=== PATIENT | female | born 1980 | race Caucasian/White ===

== ENCOUNTER 2017-02-10 08:25 | Emergency (ER) | payer OTHER ==
[~2017-02-10] VITALS: Ht 172.7 cm; Wt 92.5 kg
--- NOTE | 2017-02-10 08:57 | EKG ---
[facility] [address] [place] [address] Test Date: 2017-02-10 Test Time: 08:35:43 Pat Name: AVERY SCOTT Department: Room: Gender: Female City Magistrate: : 1980 Requested By: MELLISA FINNEGAN Order Number: [id number] Reading MD: Fadi Mattson Measurements Intervals [place] Rate: 60 P: 28 MT: 136 QRS: 33 QRSD: 86 T: 26 QT: 424 QTc: 424 Interpretive Statements SINUS ARRHYTHMIA Electronically Signed On 02-13-2017 9:36:03 CDT by Fadi Mattson
--- NOTE | 2017-02-10 09:14 | RAD ---
Indication chest pain. A single view of the chest was obtained. No prior imaging of the chest is available. The heart and pulmonary vessels appear normal. The lungs are clear. There is no pleural fluid or pneumothorax. Bony structures appear grossly intact. IMPRESSION: No acute or focal process seen in the chest
[2017-02-10 09:30] LABS: BASO # 0.1 x10^3/uL (0.0-0.2); BASO % 1 % (0-3); EOS % 2 % (0-3); HEMATOCRIT 37.1 % (36.0-47.0); HEMOGLOBIN 12.8 g/dL (12.0-15.5); LYMPH % 33 % (24-48); MEAN CORPUSCULAR HEMOGLOBIN 31 pg (25-35); MEAN CORPUSCULAR HGB CONC 35 g/dL (31-37); MEAN CORPUSCULAR VOLUME 89 fL (79-100); MONO % 8 % (0-9); NEUT % 57 % (31-73); PLATELET COUNT 222 x10^3/uL (140-400); RED BLOOD COUNT 4.17 x10^6/uL (3.50-5.40); WHITE BLOOD COUNT 6.2 x10^3/uL (4.0-11.0)
--- NOTE | 2017-02-10 09:32 | PHYS DOC ---
Past Medical History Past Medical History: Kidney Stone Past Surgical History: Cholecystectomy, Additional Past Surgical Histo: R ANKLE SX X 2 Alcohol Use: Occasionally Drug Use: None Adult General Chief Complaint Chief Complaint: CHEST PAIN HPI HPI 36-year-old female presenting to the emergency department with a ripping tearing chest pain this started suddenly yesterday. She reports being diaphoretic and lightheaded at the time. Her pain then went away. It then returned last night and woke her from sleep and then came back today. Now it is migrated to her left clavicle and is dull heavy sensation approximate 4 out of 10. It radiates up into the neck. She reports her father and her grandfather had abdominal aortic aneurysms. Otherwise she denies any family history of vasculopathy such as Val Danlos syndrome. She has a history of high cholesterol but denies diabetes or high blood pressure. She denies unilateral leg swelling hemoptysis family or personal history of blood clotting disorders. She denies recent immobilization or surgery. Review of systems is negative for nausea vomiting. Positive for diaphoresis and lightheadedness. She denies abdominal pain. All other review of systems is negative unless otherwise noted in history of present illness. Review of Systems Review of Systems SEE ABOVE. Current Medications Current Medications Current Medications Medications (Trade) Dose Ordered Sig/Katiana Start Time Stop Time Status Last Admin Dose Admin Iohexol (Omnipaque 350 Mg/ml) 90 ml 1X ONCE 02/10/17 10:45 02/10/17 10:46 DC Allergies Allergies Allergies Coded Allergies Type Severity Reaction Last Updated Verified erythromycin base Allergy Intermediate Rash 02/10/17 Yes Physical Exam Physical Exam Constitutional: Well developed, well nourished, no acute distress, non-toxic appearance. HENT: Normocephalic, atraumatic, bilateral external ears normal, oropharynx moist, no oral exudates, nose normal. [] Eyes: PERRLA, EOMI, conjunctiva normal, no discharge. Neck: Normal range of motion, no tenderness, supple, no stridor. [] Cardiovascular:Heart rate regular rhythm, no murmur Lungs & Thorax: Bilateral breath sounds clear to auscultation [] Abdomen: Bowel sounds normal, soft, no tenderness, no masses, no pulsatile masses. Skin: Warm, dry, no erythema, no rash. [] Back: No tenderness, no CVA tenderness. Extremities: No tenderness, no cyanosis, no clubbing, ROM intact, no edema. Palpable pulse in both upper extremities present. Neurologic: Alert and oriented X 3, normal motor function, normal sensory function, no focal deficits noted. [] Psychologic: Affect normal, judgement normal, mood normal. [] Current Patient Data Vital Signs Vital Signs Date Time Temp Pulse Resp B/P (MAP) Pulse Ox O2 Delivery O2 Flow Rate FiO2 02/10/17 09:00 97.9 70 18 147/66 (93) 100 Room Air 97.9 Lab Values Laboratory Tests Test 02/10/17 09:23 White Blood Count 6.2 x10^3/uL (4.0-11.0) Red Blood Count 4.17 x10^6/uL (3.50-5.40) Hemoglobin 12.8 g/dL (12.0-15.5) Hematocrit 37.1 % (36.0-47.0) Mean Corpuscular Volume 89 fL (79-100) Mean Corpuscular Hemoglobin 31 pg (25-35) Mean Corpuscular Hemoglobin Concent 35 g/dL (31-37) Red Cell Distribution Width 15.0 % (11.5-14.5) H Platelet Count 222 x10^3/uL (140-400) Neutrophils (%) (Auto) 57 % (31-73) Lymphocytes (%) (Auto) 33 % (24-48) Monocytes (%) (Auto) 8 % (0-9) Eosinophils (%) (Auto) 2 % (0-3) Basophils (%) (Auto) 1 % (0-3) Neutrophils # (Auto) 3.5 x10^3uL (1.8-7.7) Lymphocytes # (Auto) 2.0 x10^3/uL (1.0-4.8) Monocytes # (Auto) 0.5 x10^3/uL (0.0-1.1) Eosinophils # (Auto) 0.1 x10^3/uL (0.0-0.7) Basophils # (Auto) 0.1 x10^3/uL (0.0-0.2) Sodium Level 140 mmol/L (136-145) Potassium Level 4.0 mmol/L (3.5-5.1) Chloride Level 104 mmol/L (98-107) Carbon Dioxide Level 28 mmol/L (21-32) Anion Gap 8 (6-14) Blood Urea Nitrogen 11 mg/dL (7-20) Creatinine 0.8 mg/dL (0.6-1.0) Estimated GFR (Cockcroft-Gault) 80.3 Glucose Level 94 mg/dL (70-99) Calcium Level 9.5 mg/dL (8.5-10.1) Total Bilirubin 0.6 mg/dL (0.2-1.0) Direct Bilirubin 0.2 mg/dL (0.0-0.2) Aspartate Amino Transferase (AST) 19 U/L (15-37) Alanine Aminotransferase (ALT) 25 U/L (14-59) Alkaline Phosphatase 56 U/L (46-116) Troponin I Quantitative < 0.017 ng/mL (0.000-0.055) Total Protein 7.4 g/dL (6.4-8.2) Albumin 3.9 g/dL (3.4-5.0) Lipase 143 U/L (73-393) Laboratory Tests 02/10/17 09:23 Laboratory Tests 02/10/17 09:23 EKG EKG EKG shows sinus rhythm with a regular rate. Neeses is normal. Intervals are normal. ST segments are congruent. Not suggestive of ischemia. Reviewed by myself [] Radiology/Procedures Radiology/Procedures [] Course & Med Decision Making Course & Med Decision Making Pertinent Labs and Imaging studies reviewed. (See chart for details) [] 28-year-old female presenting to the emergency department with chest pain. Triage vital signs afebrile with normal heart rate. Mild hypertension present. EKG unremarkable. Chest x-ray obtained. Blood pressures obtained in both extremities []. Blood work sent. CT angiography of the aorta shows no evidence of aortic dissection. On reexamination the patient's pain improved. The patient was then discharged home in stable condition to follow up with their primary care physician over the next 2-3 days. They were to return if their symptoms worsened or if they were concerned for any reason. [id number] discharge instructions and return precautions were given. Patient's questions were answered to their satisfaction. Patient is comfortable plan. PERC neg. Heart Score 1. Dragon Disclaimer Dragon Disclaimer This electronic medical record was generated, in whole or in part, using a voice recognition dictation system. Departure Departure Impression: Primary Impression: Chest pain Disposition: HOME, SELF-CARE Condition: STABLE Referrals: ABRAM MAYORGA MD Patient Instructions: Chest Pain (Nonspecific) Additional Instructions: Thank you for allowing us to participate in your care today. Followup with your primary care physician in 3 days if your symptoms do not improve. If you do not have a primary care provider you can ask for a list of our primary care providers. Return to the emergency department you have any new or concerning findings. This should be evaluated by the primary care physician and any necessary consulting services for continued management within a few days after discharge. Return to emergency room if you have any new or concerning symptoms including but not limited to fever, chills, nausea, vomiting, intractable pain, any new rashes, chest pain, shortness of air, uncontrolled bleeding, difficulty breathing, and/or vision loss. Problem Qualifiers Primary Impression: Chest pain Chest pain type: unspecified Qualified Codes: R07.9 - Chest pain, unspecified MELLISA FINNEGAN MD February 10, 2017 09:32
[2017-02-10 09:44] LABS: CALCIUM 9.5 mg/dL (8.5-10.1); CREATININE 0.8 mg/dL (0.6-1.0); GFR 80.3
[2017-02-10 09:50] LABS: ALBUMIN 3.9 g/dL (3.4-5.0); DIRECT BILIRUBIN 0.2 mg/dL (0.0-0.2); TOTAL BILIRUBIN 0.6 mg/dL (0.2-1.0); TOTAL PROTEIN 7.4 g/dL (6.4-8.2)
[2017-02-10] MEDS ORDERED: IOHEXOL 350 MG/ML 100 ML VIAL. IV ONE (10:45)
--- NOTE | 2017-02-10 11:39 | RAD ---
Exam performed: CT angiogram chest, abdomen and pelvis with contrast. History: Chest pain, suspected dissection. Date of service: 02/10/17. Comparison: None available Technique: Contiguous helical acquisitions are obtained through the chest, abdomen and pelvis during intravenous administration of 90 cc of Omnipaque 350. Sagittal and coronal MIP images are obtained and reviewed. Images were sent to 3-D workstation and 3-D rotating MIP images were obtained and reviewed. Findings: Study somewhat limited due to cardiac motion blurred. The before meals sending, arch and descending thoracic aorta appears normal in course and caliber. The abdominal aorta is normal in caliber. Normal origin of the neck vessels is seen. The celiac axis, superior mesenteric and inferior mesenteric arteries appear normal. Bilateral single renal arteries. Normal aortic bifurcation into internal and external iliac arteries is seen. Structures at the thoracic inlet including both lobes of the thyroid gland are normal. No dominant neck, axillary, mediastinal or hilar adenopathy is seen. Central airways patent without endoluminal lesions. The lungs are well expanded and clear. No focal infiltrates, effusion or pneumothorax is seen. Bones are normal. The study is performed for evaluation of abdominal viscera, however the liver, spleen and pancreas appear normal. The gallbladder is surgically absent. Both adrenal glands and bilateral kidneys are normal in size with symmetric excretion of contrast from both kidneys. There is no hydronephrosis or nephrolithiasis. No periaortic lymphadenopathy or fluid collection is seen. Small and large bowel loops are nondilated and unremarkable. Appendix is normal. The uterus is anteverted. Urinary bladder is well distended. No adnexal masses seen. No free or focal fluid collections or pelvic lymphadenopathy seen. Interrogation of bone windows is essentially unremarkable. Impression: 1. Essentially unremarkable CT angiogram aorta. No evidence of aneurysm or dissection seen. 2. No acute abnormality seen in the CT chest, abdomen and pelvis. PQRS Compliance Statement: One or more of the following individualized dose reduction techniques were utilized for this examination: 1. Automated exposure control 2. Adjustment of the mA and/or kV according to patient size 3. Use of iterative reconstruction technique
[2017-02-10 12:00] VITALS: BP 108/74
== END 2017-02-10 12:15 | disposition home or self-care (01) ==
LOC: ER 09:56
DX: R07.9 Chest pain, unspecified (principal); I10 Essential (primary) hypertension; Z87.442 Personal history of urinary calculi; Z90.49 Acquired absence of other specified parts of digestive tract
CPT/HCPCS: 36415; 71010; 71275; 74174; 80048; 80076; 83690; 84484; 85027; 93005; 99285-25

== ENCOUNTER → 2018-03-15 | Outpatient (CLI) | payer OTHER ==
[2018-03-15 17:41] LABS: ADD MAN DIFF? NO
[2018-03-15 17:48] LABS: BASO % 1 % (0-3); EOS # 0.1 x10^3/uL (0.0-0.7); EOS % 1 % (0-3); HEMATOCRIT 41.1 % (36.0-47.0); HEMOGLOBIN 14.1 g/dL (12.0-15.5); LYMPH # 2.3 x10^3/uL (1.0-4.8); LYMPH % 35 % (24-48); MEAN CORPUSCULAR HEMOGLOBIN 32 pg (25-35); MEAN CORPUSCULAR HGB CONC 34 g/dL (31-37); MEAN CORPUSCULAR VOLUME 92 fL (79-100); MONO # 0.5 x10^3/uL (0.0-1.1); MONO % 7 % (0-9); NEUT # 3.7 x10^3uL (1.8-7.7); NEUT % 56 % (31-73); PLATELET COUNT 230 x10^3/uL (140-400); RED BLOOD COUNT 4.48 x10^6/uL (3.50-5.40); RED CELL DISTRIBUTION WIDTH 12.9 % (11.5-14.5); WHITE BLOOD COUNT 6.6 x10^3/uL (4.0-11.0)
[2018-03-15 18:07] LABS: ALBUMIN 4.2 g/dL (3.4-5.0); ALBUMIN/GLOBULIN RATIO 1.1 (1.0-1.7); ALK PHOS 65 U/L (46-116); ALT (SGPT) 21 U/L (14-59); ANION GAP 11 (6-14); AST (SGOT) 15 U/L (15-37); BLOOD UREA NITROGEN 14 mg/dL (7-20); BUN/CREATININE RATIO 16 (6-20); CALCIUM 9.5 mg/dL (8.5-10.1); CARBON DIOXIDE 27 mmol/L (21-32); CHLORIDE 105 mmol/L (98-107); CHOLESTEROL 184 mg/dL (0-200); CREATININE 0.9 mg/dL (0.6-1.0); GFR 69.7; GLUCOSE 91 mg/dL (70-99); HDLC 60 mg/dL (40-60); LDLC 105 mg/dL (0-100); NON-HDL CHOLESTEROL 124 mg/dL (0-129); POTASSIUM 3.7 mmol/L (3.5-5.1); SODIUM 143 mmol/L (136-145); TOTAL BILIRUBIN 0.7 mg/dL (0.2-1.0); TOTAL PROTEIN 8.1 g/dL (6.4-8.2); TRIGLYCERIDES 93 mg/dL (0-150); VLDLC 19 mg/dL (0-40)
[2018-03-15 18:09] LABS: CHOLESTEROL/HDL RATIO 3.1
[2018-03-15 18:17] LABS: FREE T4 0.84 ng/dL (0.76-1.46)
[2018-03-15 18:17] LABS: THYROID STIM HORMONE (TSH) 2.925 uIU/mL (0.358-3.74)
== END | disposition home or self-care (01) ==
LOC: LAB 17:26
DX: I10 Essential (primary) hypertension (principal); Z87.442 Personal history of urinary calculi; Z90.49 Acquired absence of other specified parts of digestive tract
CPT/HCPCS: 36415; 80053; 80061; 83036; 84439; 84443; 85025

== ENCOUNTER → 2018-04-23 | Outpatient (CLI) | payer OTHER ==
[2018-04-23 10:18] LABS: ADD MAN DIFF? NO
[2018-04-23 10:37] LABS: BASO % 0 % (0-3); EOS # 0.1 x10^3/uL (0.0-0.7); EOS % 2 % (0-3); HEMATOCRIT 37.2 % (36.0-47.0); LYMPH # 2.4 x10^3/uL (1.0-4.8); LYMPH % 35 % (24-48); MEAN CORPUSCULAR HEMOGLOBIN 32 pg (25-35); MEAN CORPUSCULAR HGB CONC 35 g/dL (31-37); MEAN CORPUSCULAR VOLUME 91 fL (79-100); MONO # 0.5 x10^3/uL (0.0-1.1); MONO % 7 % (0-9); NEUT # 3.8 x10^3uL (1.8-7.7); NEUT % 56 % (31-73); PLATELET COUNT 208 x10^3/uL (140-400); RED CELL DISTRIBUTION WIDTH 12.9 % (11.5-14.5); WHITE BLOOD COUNT 6.9 x10^3/uL (4.0-11.0)
[2018-04-23 11:38] LABS: SEDIMENTATION RATE 15 (0-25)
[2018-04-23 23:10] LABS: RHEUMATOID FACTOR <10.0 IU/mL (0.0-13.9)
== END | disposition home or self-care (01) ==
LOC: LAB 10:02
DX: M25.50 Pain in unspecified joint (principal); I10 Essential (primary) hypertension; Z87.442 Personal history of urinary calculi; Z90.49 Acquired absence of other specified parts of digestive tract
CPT/HCPCS: 36415; 85025; 85651; 86038; 86431

== ENCOUNTER → 2018-07-02 | Outpatient (CLI) | payer OTHER ==
--- NOTE | 2018-07-02 09:39 | RAD ---
EXAM: Bilateral hands and wrists, 3 views. HISTORY: Pain. COMPARISON: None. FINDINGS: Frontal, lateral and oblique views of both hands and wrists are obtained. There is no fracture, dislocation or subluxation. The alignment and joint spaces are unremarkable. There is no radiodense foreign body. There is an incidental tiny chronic ossicle along the dorsal aspect of the base of the right second distal phalanx. IMPRESSION: No acute osseous finding. Electronically signed by: Tyesha Shaw MD (07/02/2018 9:35 AM) [place] [id number]
== END | disposition home or self-care (01) ==
LOC: RAD 08:35
PROVIDERS: ATTEND Family Medicine
DX: M25.531 Pain in right wrist (principal); M25.532 Pain in left wrist; M79.642 Pain in left hand; M79.641 Pain in right hand; I10 Essential (primary) hypertension; Z87.442 Personal history of urinary calculi; Z90.49 Acquired absence of other specified parts of digestive tract
CPT/HCPCS: 36415; 73110; 73130; 86200

== ENCOUNTER → 2018-12-03 | Outpatient (CLI) | payer OTHER ==
--- NOTE | 2018-12-03 16:48 | KCIC ---
History: Screening Bilateral digital CC and MLO views were obtained with mammography and tomosynthesis. Computer aided detection was utilized with iCAD Second Look 7.2-H. Previous: Mammogram November 01, 2013. There are scattered fibroglandular densities (Level 2 density).There are no suspicious masses, suspicious microcalcifications or areas of architectural distortion. There is decreased density of the glandular tissue since the prior exam with more heterogeneity of the scattered glandular tissue density relative to the prior study. Although in light of this there are new asymmetries involving the left outer breast posterior depth, left inner breast posterior depth, and right inner breast posterior depth demonstrating greater clumped soft tissue density relative to the other scattered areas of glandular tissue. IMPRESSION: Glandular asymmetries of both breasts new from the prior exam. Further assessment with bilateral breast sonography is advised. The breast center will provide imaging follow up orders and will contact the patient for follow up. BI-RADS Category 0: Incomplete. Need additional imaging evaluation. If your mammogram demonstrates that you have dense breast tissue, which could hide abnormalities, and if you have other risk factors for breast cancer that have been identified, you might benefit from supplemental screening tests that may be suggested by your ordering physician. Dense breast tissue, in and of itself, is a relatively common condition. This information is not provided to cause undue concern, but rather to raise your awareness and to promote discussion with your physician regarding the presence of other risk factors, in addition to dense breast tissue. A report of your mammography results will be sent to you and your physician. You should contact your physician if you have any questions or concerns regarding this report. A mammogram does not have 100% sensitivity and therefore a negative imaging study should not delay further work up of a suspicious abnormality. Electronically signed by: Edgardo Oconnor MD (12/03/2018 4:45 PM) [id number]
== END | disposition home or self-care (01) ==
LOC: KCIC MAMMO 10:04
PROVIDERS: ATTEND Family Medicine
DX: Z12.31 Encounter for screening mammogram for malignant neoplasm of breast (principal)
CPT/HCPCS: 77063; 77067

== ENCOUNTER → 2018-12-18 | Outpatient (CLI) | payer OTHER ==
--- NOTE | 2018-12-18 17:42 | KCIC ---
Bilateral breast ultrasound: Reason for examination: Glandular asymmetries on screening mammogram. Comparison is made to mammographic exam dated 12/04/2015. Ultrasound examination was performed in the areas of mammographic concern laterally in the right breast and throughout the left breast and at the axilla bilaterally. Sonographically there are no discrete cystic or solid nodules or architectural distortions. No abnormal appearing lymph nodes are seen in the axilla. IMPRESSION: No focal abnormalities evident in either breast sonographically. Recommend reevaluation bilaterally with mammograms and ultrasound in 6 months. BI-RADS Category 3: Probably Benign. "Our facility is accredited by the [employer] Mammography Program." This patient's information has been entered into a reminder system for the patient to be notified with the results of her examination and a target date for the next mammogram. Electronically signed by: Carmen Swanson MD (12/18/2018 5:40 PM) [id number]
== END | disposition home or self-care (01) ==
LOC: KCIC US 12:55
PROVIDERS: ATTEND Family Medicine
DX: R92.8 Other abnormal and inconclusive findings on diagnostic imaging of breast (principal)
CPT/HCPCS: 76641

== ENCOUNTER → 2019-07-30 | Outpatient (CLI) | payer OTHER ==
--- NOTE | 2019-07-30 16:51 | KCIC ---
Bilateral diagnostic digital mammograms with 3-D tomosynthesis: Reason for examination: Follow up parenchymal asymmetries. Comparison is made to previous studies dated 12/03/2018 and 11/01/2013. Bilateral mammograms in CC and oblique projections were obtained with 2-D imaging and 3-D tomosynthesis imaging on a Siemens Inspiration unit and reviewed on the workstation. Interpretation was made with the benefit of CAD. The skin and nipples show no abnormalities. No abnormal axillary lymph nodes are seen. The breast parenchyma shows scattered fatty and fibroglandular density. (Breast density: Category B.) There continue to be patchy parenchymal asymmetries which are stable. There are no new dominant masses, suspicious calcifications or architectural distortion. Impression: Patchy parenchymal asymmetries persists without change. Ultrasound to follow. BI-RAD Category 0: Incomplete. Needs additional imaging evaluation. Bilateral breast ultrasound: Comparison is made to previous study dated 12/18/2018. Bilateral whole breast ultrasound including evaluation of all 4 quadrants and the retroareolar and axillary regions of both breasts was performed. The right and left breast show no discrete cystic or solid nodules or architectural distortions. No abnormal appearing lymph nodes are seen in the axilla. IMPRESSION: No suspicious abnormalities evident in either breast sonographically. Recommend routine mammographic follow-up. BI-RADS Category 2: Benign. "Our facility is accredited by the [employer] Mammography Program." This patient's information has been entered into a reminder system for the patient to be notified with the results of her examination and a target date for the next mammogram. Electronically signed by: Carmen Swanson MD (07/30/2019 4:49 PM) [id number]
== END | disposition home or self-care (01) ==
LOC: KCIC MAMMO 08:19
PROVIDERS: ATTEND Family Medicine
DX: R92.8 Other abnormal and inconclusive findings on diagnostic imaging of breast (principal)
CPT/HCPCS: 76641; 77066; G0279; 77062

== ENCOUNTER → 2019-11-14 | Outpatient (CLI) | payer OTHER ==
[2019-11-14 06:55] LABS: BASO % 1 % (0-3); EOS # 0.1 x10^3/uL (0.0-0.7); EOS % 1 % (0-3); HEMATOCRIT 40.1 % (36.0-47.0); HEMOGLOBIN 13.7 g/dL (12.0-15.5); LYMPH # 2.1 x10^3/uL (1.0-4.8); LYMPH % 31 % (24-48); MEAN CORPUSCULAR HEMOGLOBIN 32 pg (25-35); MEAN CORPUSCULAR HGB CONC 34 g/dL (31-37); MEAN CORPUSCULAR VOLUME 93 fL (79-100); MONO # 0.5 x10^3/uL (0.0-1.1); MONO % 8 % (0-9); NEUT # 4.1 x10^3/uL (1.8-7.7); NEUT % 60 % (31-73); PLATELET COUNT 197 x10^3/uL (140-400); RED BLOOD COUNT 4.33 x10^6/uL (3.50-5.40); RED CELL DISTRIBUTION WIDTH 12.6 % (11.5-14.5); WHITE BLOOD COUNT 6.9 x10^3/uL (4.0-11.0)
[2019-11-14 07:19] LABS: ALBUMIN 4.2 g/dL (3.4-5.0); ALBUMIN/GLOBULIN RATIO 1.4 (1.0-1.7); CALCIUM 9.3 mg/dL (8.5-10.1); CREATININE 0.9 mg/dL (0.6-1.0); POTASSIUM 3.5 mmol/L (3.5-5.1); TOTAL BILIRUBIN 0.4 mg/dL (0.2-1.0); TOTAL PROTEIN 7.2 g/dL (6.4-8.2)
== END | disposition home or self-care (01) ==
LOC: LAB 05:48
PROVIDERS: ATTEND Family Medicine
DX: R53.82 Chronic fatigue, unspecified (principal)
CPT/HCPCS: 36415; 80053; 84443; 85025

== ENCOUNTER → 2019-12-06 | Outpatient (CLI) | payer OTHER ==
--- NOTE | 2019-12-06 08:07 | RAD ---
EXAM: Pelvic Ultrasound Complete INDICATION: Pelvic pain, dysmenorrhea ? TECHNIQUE: Real-time ultrasound of the pelvis with permanent freeze-frame documentation. COMPARISON:?Pelvic ultrasound of 03/24/2019 ? FINDINGS: ? UTERUS:?Uterus 10.1 x 4.8 x 4.2 cm.? Endometrial thickness 0.6 cm. A round 8 mm mass in the anterior uterus is present, suggestive of a submucosal leiomyoma. Small nabothian cyst in the anterior upper cervix. ? RIGHT OVARY/ADNEXA: Right ovary 2.9 x 2.3 x 2.1 cm.? Dominant right ovarian follicle measuring 1.8 x 1.4 x 1.3 cm Normal ovarian blood flow. LEFT OVARY/ADNEXA:?Left ovary 3.2 x 1.9 x 1.4 cm. ?It contains an 8 mm follicle that has echogenic nonvascular material along its mcfadden. This was present on the prior examination, essentially unchanged in size in the interval. Normal ovarian blood flow. ? OTHER:?No evidence of significant pelvic free fluid. ? IMPRESSION: 1. Possible 8 mm submucosal leiomyoma at the anterior uterine fundus. 2. Incidental echogenic material within a left ovarian 8 mm follicle. This could represent organizing blood products or more likely fat from a benign dermoid given its persistence since the last exam. Electronically signed by: Suzi Galdamez MD (12/06/2019 8:04 AM) [id number]
== END | disposition home or self-care (01) ==
LOC: US 05:57
PROVIDERS: ATTEND Obstetrics & Gynecology
DX: N88.8 Other specified noninflammatory disorders of cervix uteri (principal); N83.8 Other noninflammatory disorders of ovary, fallopian tube and broad ligament; N81.4 Uterovaginal prolapse, unspecified
CPT/HCPCS: 76830

== ENCOUNTER → 2020-02-28 | Outpatient (CLI) | payer OTHER ==
[~2020-02-28] MED LIST: CITA20TA6 PO; DOCU-109 PO; IBUP200T44 PO; OXYC1TAB15 PO
== END | disposition home or self-care (01) ==
LOC: SURGPAT 06:06
PROVIDERS: ATTEND Obstetrics & Gynecology
DX: Z01.818 Encounter for other preprocedural examination (principal); Z11.59 Encounter for screening for other viral diseases
CPT/HCPCS: C9803; U0003; 36415

== ENCOUNTER 2020-03-05 05:53 | Observation (INO) | payer OTHER ==
[~2020-03-05] VITALS: Ht 172.7 cm; Wt 83.9 kg
[2020-03-05] VITALS (11 sets, daily range): BP systolic 90–102; BP diastolic 52–64
[~2020-03-05 05:53] MED LIST changes: -DOCU-109 PO; -OXYC1TAB15 PO
[2020-03-05] MEDS ORDERED: ceFAZolin 2GM PREMIX 2 GM/50 ML BAG IV ONE (07:00)
[2020-03-05] MEDS ORDERED: fentaNYL PF VIAL 100 MCG/2 ML VIAL IV PRN ×2 (07:00)
[2020-03-05] MEDS ORDERED: SCOPOLAMINE 1.5MG PATCH. TD ONE (07:00)
[2020-03-05] MEDS ORDERED: IV RINGERS,LACTATED 1000ML 1,000 ML IV SCH (07:00)
[2020-03-05] MEDS ORDERED: BUPIVACAINE-EPI 0.25%-1:200000 MPF 30 ML VIAL. ONE (07:05)
[2020-03-05] MEDS ORDERED: SURGICEL HEMOSTAT 4X8 EACH. ONE (07:06)
[2020-03-05] MEDS ORDERED: ESTROGENS, CONJ VAGINAL CREAM 30GM TUBE. ONE (07:06)
[2020-03-05] MEDS ORDERED: INDIGOTINDISULFONATE SODIUM 40 MG/5 ML AMPUL. ONE (07:07)
[2020-03-05] MEDS ORDERED: LIDOCAINE 1%/EPI 1:100,000 20 ML VIAL. ONE (07:07)
[2020-03-05 07:25] LABS: BASO % 1 % (0-3); EOS # 0.1 x10^3/uL (0.0-0.7); EOS % 1 % (0-3); HEMATOCRIT 38.5 % (36.0-47.0); HEMOGLOBIN 13.3 g/dL (12.0-15.5); LYMPH # 1.5 x10^3/uL (1.0-4.8); LYMPH % 28 % (24-48); MEAN CORPUSCULAR HEMOGLOBIN 32 pg (25-35); MEAN CORPUSCULAR HGB CONC 35 g/dL (31-37); MEAN CORPUSCULAR VOLUME 94 fL (79-100); MONO # 0.4 x10^3/uL (0.0-1.1); MONO % 8 % (0-9); NEUT # 3.2 x10^3/uL (1.8-7.7); NEUT % 62 % (31-73); PLATELET COUNT 221 x10^3/uL (140-400); RED BLOOD COUNT 4.11 x10^6/uL (3.50-5.40); WHITE BLOOD COUNT 5.2 x10^3/uL (4.0-11.0)
[2020-03-05] MEDS ORDERED: fentaNYL PF VIAL 100 MCG/2 ML VIAL ONE ×2 (07:26→09:59)
[2020-03-05] MEDS ORDERED: SEVOFLURANE > 120 MINUTES. IH ONE (07:26)
[2020-03-05] MEDS ORDERED: ROCURONIUM 50 MG/5 ML VIAL. ONE (07:27)
[2020-03-05] MEDS ORDERED: GLYCOPYRROLATE 1 MG/5 ML VIAL. ONE (07:27)
[2020-03-05] MEDS ORDERED: MIDAZOLAM HCL/PF 2 MG/2 ML VIAL. ONE (07:27)
[2020-03-05] MEDS ORDERED: NEOSTIGMINE METHYLSULFATE 5 MG/5 ML SYRINGE. ONE (07:27)
[2020-03-05] MEDS ORDERED: LIDOCAINE 2% PF 5 ML VIAL. ONE (07:28)
[2020-03-05] MEDS ORDERED: DEXAMETHASONE SOD PHOS 4 MG/ML VIAL ONE (07:28)
[2020-03-05] MEDS ORDERED: PROPOFOL 10 MG/ML (20ML) VIAL. IV ONE (07:28)
[2020-03-05] MEDS ORDERED: ONDANSETRON PF 4 MG/2 ML VIAL. ONE (07:28)
[2020-03-05] MEDS ORDERED: KETOROLAC 30 MG/ML VIAL. ONE (07:28)
--- NOTE | 2020-03-05 09:20 | PDOC ---
BRIEF OPERATIVE NOTE Date: Mar 05, 2020 Pre-Op Diagnosis 1. Menorrhagia 2. Dysmenorrhea 3. TANNER Cyst Post-Op Diagnosis Same + TANNER nodule Procedure Performed LAVH and TANNER cyst bx Surgeon Dr. Bustamante [employer] Representative assembler radio and electrical: Luis Enrique Anesthesia Type: General Blood Loss 100 ml Specimens Obtained TANNER bx, uterus, cervix and fallopian tubes alicia. Findings enlarged uterus, nml fallopian tubes alicia. TANNER with nodule 1 cm size, ROV nml Complications none Operative Note see dictation ELIAZAR BUSTAMANTE Jr, MD Mar 05, 2020 09:20
[2020-03-05] MEDS ORDERED: diphenhydrAMINE HCL 25 MG CAPSULE PO PRN (09:30)
[2020-03-05] MEDS ORDERED: DEXTROSE 50% 25 GM / 50ML DISP.SYRIN. IV PRN (09:30)
[2020-03-05] MEDS ORDERED: diphenhydrAMINE 50 MG/ML VIAL IV PRN (09:30)
[2020-03-05] MEDS ORDERED: ZOLPIDEM 5 MG TABLET. PO PRN (09:30)
[2020-03-05] MEDS ORDERED: 0.9 % SODIUM CHLORIDE 10 ML DISP.SYRIN. IV PRN (09:30)
[2020-03-05] MEDS ORDERED: ONDANSETRON PF 4 MG/2 ML VIAL. IV PRN (09:30)
[2020-03-05] MEDS ORDERED: CALCIUM CARBONATE 500 MG TAB.CHEW PO PRN (09:30)
[2020-03-05] MEDS ORDERED: PROCHLORPERAZINE 10 MG/2 ML VIAL. IV PRN (09:30)
[2020-03-05] MEDS ORDERED: SIMETHICONE 80 MG TAB.CHEW PO PRN (09:30)
[2020-03-05] MEDS: PROCHLORPERAZINE 10 MG/2 ML VIAL. IV PRN ×2 (09:35→10:20)
--- NOTE | 2020-03-05 09:56 | OP ---
DATE OF SURGERY: 03/05/2020 PREOPERATIVE DIAGNOSES: 1. Menorrhagia. 2. Dysmenorrhea. 3. Left ovarian cyst. POSTOPERATIVE DIAGNOSES: 1. Menorrhagia. 2. Dysmenorrhea. 3. Left ovarian cyst. 4. Left ovarian nodule. SURGEON: Eliazar Bustamante MD WHIZZER: Shayy. PROCEDURE: LAVH and left ovarian cyst biopsy. ANESTHESIA: GETA. ESTIMATED BLOOD LOSS: 100 mL. COMPLICATIONS: None. FINDINGS: Enlarged uterus. Normal fallopian tubes bilaterally. Left ovary with 1 cm size nodule. Right ovary normal. SUMMARY: A 39-year-old with long history of menorrhagia, dysmenorrhea and left ovarian cyst that was unresolved, requiring surgery. The patient was counseled on risks, benefits and expectations and voiced clear understanding to proceed. DESCRIPTION OF PROCEDURE: The patient was taken to surgery suite and placed in dorsal lithotomy position. She was prepped with Betadine solution for vaginal prep and ChloraPrep for abdominal prep. After adequate anesthesia, weighted speculum and curved [place] placed vaginally. The anterior lip of the cervix grasped with single tooth tenaculum. The Boost My Ads uterine manipulator was then placed. Curved Amena and weighted speculum were then removed. Attention was now placed on abdomen. Small transverse skin incision was made just below the umbilicus with a scalpel. Veress needle was then placed through the infraumbilical incision site. The abdomen was allowed to insufflate up to 1-1/2 liters CO2 gas. The Veress needle was then removed, 5 mm scope was placed. The uterus was visualized and enlarged. Fallopian tubes appeared normal bilaterally. Both ovaries appeared normal with exception of left ovarian nodule of about 1 cm size. Two additional incisions were made in the left lower quadrant with a scalpel in which 5 mm trocars were placed. With aid of graspers and the EnSeal device, the left ovarian nodule was removed. We then proceeded with the hysterectomy. The right round ligament was coagulated and dissected. The right fallopian tube was coagulated and dissected. The utero-ovarian pedicle was coagulated and dissected. The right broad ligament was dissected down to and including the right uterine artery. Same process took place with left adnexa. Bladder flap was created using blunt dissection along with EnSeal device and hydrodissection. The pedicles were all hemostatic. We then proceeded vaginally. Weighted speculum and curved Amena placed vaginally. The single tooth tenaculum and Valtchev were removed. Dontrell clamps were placed on the anterior lip of the cervix and posterior lip of the cervix. Cervix was then injected with 1% lidocaine with epinephrine in circumferential manner. Bovie cautery was utilized to circumscribe the cervix. The vaginal mucosa was dissected away from the lower uterine segment using moist Ray-Martina. The parametrial tissue was clamped bilaterally, cut, and suture ligated. We then entered the posterior cul-de-sac with sharp dissection using curved Walter scissors. Long weighted speculum was placed. Uterosacral ligaments were clamped bilaterally, cut, and suture ligated. We entered the anterior cul-de-sac using blunt dissection with a moist Ray-Martina. One peritoneal attachment to the uterus was present, which was clamped, cut, and suture ligated. The cervix, uterus, bilateral fallopian tubes then removed in their entirety. A modified Moncada's culdoplasty was performed using 0 Vicryl suture, incorporating the uterosacral ligaments bilaterally. The remainder of the vaginal cuff was reapproximated using 2-0 Vicryl suture in [id number] manner. Moist vaginal packing was placed. Attention was now placed on abdomen once again. The abdomen was allowed to insufflate up to 1-1/2 liters CO2 gas. The scope was positioned. The pedicles were visualized, they were all hemostatic and was verified with suction irrigation. A small amount of normal saline was left in posterior cul-de-sac. The trocars were then removed under direct visualization. The abdomen was allowed to deflate as much as possible along with mechanical manipulation. The three skin incisions were reapproximated using 4-0 Vicryl suture in subcuticular manner. A 0.25% Marcaine with epinephrine was injected at each incision site. The patient tolerated the procedure well and was taken to recovery room in stable condition. Sponge and needle count correct x 3. ELIAZAR BUSTAMANTE MD DR: VENU/viet JOB#: [id number] / [id number]
[2020-03-05] MEDS: GABAPENTIN 300 MG CAPSULE. PO SCH ×2 (14:00→22:02)
[2020-03-05] MEDS: oxyCODONE/APAP 5/325 1 TAB TABLET PO PRN ×2 (17:18→22:02)
[2020-03-05] MEDS: KETOROLAC 30 MG/ML VIAL. IV PRN (20:47)
[2020-03-06 01:30] VITALS: BP 103/60
[2020-03-06 04:40] LABS: BASO % 0 % (0-3); EOS % 0 % (0-3); HEMATOCRIT 32.6 % (36.0-47.0); HEMOGLOBIN 11.3 g/dL (12.0-15.5); LYMPH % 21 % (24-48); MEAN CORPUSCULAR HEMOGLOBIN 33 pg (25-35); MEAN CORPUSCULAR HGB CONC 35 g/dL (31-37); MEAN CORPUSCULAR VOLUME 94 fL (79-100); MONO # 0.8 x10^3/uL (0.0-1.1); MONO % 8 % (0-9); NEUT # 6.8 x10^3/uL (1.8-7.7); NEUT % 70 % (31-73); PLATELET COUNT 191 x10^3/uL (140-400); RED BLOOD COUNT 3.47 x10^6/uL (3.50-5.40); WHITE BLOOD COUNT 9.7 x10^3/uL (4.0-11.0)
[2020-03-06] MEDS: oxyCODONE/APAP 5/325 1 TAB TABLET PO PRN ×2 (06:11→14:31)
[2020-03-06] MEDS: KETOROLAC 30 MG/ML VIAL. IV PRN (06:11)
[2020-03-06] MEDS: GABAPENTIN 300 MG CAPSULE. PO SCH (06:12)
[2020-03-06 06:25] VITALS: BP 100/61
[2020-03-06 12:45] VITALS: BP 104/62
--- NOTE | 2020-03-06 13:44 | PDOC ---
SURGICAL PROGRESS NOTE Subjective Pt. feeling well. Pain controlled. Vital Signs Vital Signs Date Time Temp Pulse Resp B/P (MAP) Pulse Ox O2 Delivery O2 Flow Rate FiO2 03/06/20 06:25 98.9 69 20 100/61 (74) 98 Room Air 98.9 03/05/20 14:45 2.0 I&O Intake and Output 03/06/20 07:00 Intake Total 1900 ml Output Total 1300 ml Balance 600 ml Intake Oral 500 ml IV Total 1400 ml Output Urine Total 1200 ml Estimated Blood Loss 100 ml PATIENT HAS A SANTIAGO: No General: Alert, Oriented X3, Cooperative HEENT: PERRLA Lungs: Clear to auscultation Heart: Regular rate Abdomen: Normal bowel sounds, Soft, No tenderness Psych/Mental Status: Mental status NL Labs Laboratory Tests Test 03/05/20 06:20 03/05/20 06:21 03/06/20 04:30 White Blood Count 5.2 x10^3/uL (4.0-11.0) 9.7 x10^3/uL (4.0-11.0) Red Blood Count 4.11 x10^6/uL (3.50-5.40) 3.47 x10^6/uL (3.50-5.40) Hemoglobin 13.3 g/dL (12.0-15.5) 11.3 g/dL (12.0-15.5) Hematocrit 38.5 % (36.0-47.0) 32.6 % (36.0-47.0) Mean Corpuscular Volume 94 fL (79-100) 94 fL (79-100) Mean Corpuscular Hemoglobin 32 pg (25-35) 33 pg (25-35) Mean Corpuscular Hemoglobin Concent 35 g/dL (31-37) 35 g/dL (31-37) Red Cell Distribution Width 13.0 % (11.5-14.5) 13.0 % (11.5-14.5) Platelet Count 221 x10^3/uL (140-400) 191 x10^3/uL (140-400) Neutrophils (%) (Auto) 62 % (31-73) 70 % (31-73) Lymphocytes (%) (Auto) 28 % (24-48) 21 % (24-48) Monocytes (%) (Auto) 8 % (0-9) 8 % (0-9) Eosinophils (%) (Auto) 1 % (0-3) 0 % (0-3) Basophils (%) (Auto) 1 % (0-3) 0 % (0-3) Neutrophils # (Auto) 3.2 x10^3/uL (1.8-7.7) 6.8 x10^3/uL (1.8-7.7) Lymphocytes # (Auto) 1.5 x10^3/uL (1.0-4.8) 2.0 x10^3/uL (1.0-4.8) Monocytes # (Auto) 0.4 x10^3/uL (0.0-1.1) 0.8 x10^3/uL (0.0-1.1) Eosinophils # (Auto) 0.1 x10^3/uL (0.0-0.7) 0.0 x10^3/uL (0.0-0.7) Basophils # (Auto) 0.0 x10^3/uL (0.0-0.2) 0.0 x10^3/uL (0.0-0.2) Bedside Urine HCG, Qualitative Hcg negative (Negative) Laboratory Tests Test 03/06/20 04:30 White Blood Count 9.7 x10^3/uL (4.0-11.0) Red Blood Count 3.47 x10^6/uL (3.50-5.40) Hemoglobin 11.3 g/dL (12.0-15.5) Hematocrit 32.6 % (36.0-47.0) Mean Corpuscular Volume 94 fL (79-100) Mean Corpuscular Hemoglobin 33 pg (25-35) Mean Corpuscular Hemoglobin Concent 35 g/dL (31-37) Red Cell Distribution Width 13.0 % (11.5-14.5) Platelet Count 191 x10^3/uL (140-400) Neutrophils (%) (Auto) 70 % (31-73) Lymphocytes (%) (Auto) 21 % (24-48) Monocytes (%) (Auto) 8 % (0-9) Eosinophils (%) (Auto) 0 % (0-3) Basophils (%) (Auto) 0 % (0-3) Neutrophils # (Auto) 6.8 x10^3/uL (1.8-7.7) Lymphocytes # (Auto) 2.0 x10^3/uL (1.0-4.8) Monocytes # (Auto) 0.8 x10^3/uL (0.0-1.1) Eosinophils # (Auto) 0.0 x10^3/uL (0.0-0.7) Basophils # (Auto) 0.0 x10^3/uL (0.0-0.2) Assessment/Plan A: POD#1 s/p LAVH and TANNER bx P: D/c home. Justicifation of Admission Dx: Justifications for Admission: Justification of Admission Dx: Yes ELIAZAR MARTIN Jr, MD Mar 06, 2020 13:43
[2020-03-06] MEDS ORDERED: OXYC1TAB15 PO (13:48)
[2020-03-06] MEDS ORDERED: DOCU-109 PO (13:48)
[2020-03-06] MEDS ORDERED: IBUP200T44 PO (13:48)
--- NOTE | 2020-03-06 13:49 | DISCH ---
DISCHARGE INSTRUCTIONS Condition on Discharge Condition on Discharge: Stable Activity After Discharge Activity Instructions for Disc: Activity as tolerated Lifting Instructions after Dis: No heavy lifting Driving Instructions after Dis: Do not drive today Diet after Discharge Diet after Discharge: Regular Contacting the [facility] after DC Call your doctor for: Concerns you may have Follow-Up Follow up with: Dr. Bustamante in 2 wks ELIAZAR BUSTAMANTE Jr, MD Mar 06, 2020 13:49
--- NOTE | 2020-03-06 21:05 | PATHOLOGY ---
[facility] Accession Number: [id number] . 01 Material submitted: . PART A: ovary - LEFT OVARIAN BIOPSY. Modifiers: left PART B: uterus - UTERUS WITH BILATERAL TUBES. Modifiers: bilateral . 01 Clinical history: . None provided. . 02 Diagnosis: A. Segments of ovarian tissue, left ovarian biopsy: - Fibroma. . B. Uterus and attached bilateral fallopian tubes, laparoscopic assisted vaginal hysterectomy and bilateral salpingectomy: - Adenomyosis, uterine corpus, subbasal, with mild myometrial hypertrophy (uterine weight 138 grams). - Chronic cervicitis with squamous metaplasia, focal. - Early secretory endometrium. - Leiomyoma, anterior myometrium. - Paratubal cysts and cystic [place] rests of right fallopian tube.. - Congestion of bilateral fallopian tubes. (JPM:[facility] 03/06/2020) [facility] 03/06/20202031 [facility] . 02 Comment: There is no atypia or evidence of malignancy. (JP:[facility] 03/06/2020) . 02 Electronically signed: . Cristian Scott MD, Pathologist NPI- [id number] . 01 Gross description: . A. Received in formalin labeled "Brook Malik, left ovarian biopsy" is a 2.2 x 1.0 x 0.6 cm aggregate of wilde-white soft tissue. The specimen is sectioned and submitted in A1. . B. Received in formalin labeled "Brook Malik, uterus with bilateral tubes" is an intact hysterectomy specimen with attached pink-wilde fimbriated fallopian tubes. The uterus weighs 138 g and measures 11.8 cm from cervix to fundus, 6.5 cm from cornu to cornu, and 4.5 cm from anterior to posterior. The serosa is pink-wilde and smooth and the ectocervix is pink-wilde and glistening with a slitlike cervical os measuring 1.0 cm. The uterus is opened to reveal a 5.0 x 3.2 cm endometrial cavity and a 2.1 x 0.8 cm endocervical canal. Upon sectioning, the average endometrial thickness is 0.5 cm and the average myometrial thickness is 2.1 cm. No polyps or masses are identified. One leiomyoma is present in the anterior myometrium, measuring 0.6 cm in greatest dimension. The right fallopian tube measures 6.2 cm in length and 1.0 cm in diameter and the left fallopian tube measures 6.2 cm in length and 0.6 cm in diameter. The fallopian tubes have smooth external surfaces and are sectioned to reveal pinpoint lumens. [employer] sections of the specimen are submitted as follows: B1 12:00 cervix B2 6:00 cervix B3 anterior endomyometrium B4 posterior endomyometrium B5 right fallopian tube B6 left fallopian tube ([facility] [place]; 03/05/2020) [facility] 03/05/[address] [place] [address] . 02 Pathologist provided ICD-10: D27.1, N80.0, N72, N87.9, D25.9, N83.8 . 02 CPT . 929754, [id number] Specimen Comment: A courtesy copy of this report has been sent to [phone] Specimen Comment: Report sent to Performed at: 01 [facility] [address], [place] [id number] MD Kirk Power MD Phone: [phone] Performed at: 02 [facility] [address] [place], [place] [id number] MD Cristian Scott MD Phone: [phone]
== END 2020-03-06 14:00 | disposition home or self-care (01) ==
LOC: SURG 05:53 → 3 NORTH 10:41
PROVIDERS: ADMIT Obstetrics & Gynecology; ATTEND Obstetrics & Gynecology
DX: N92.0 Excessive and frequent menstruation with regular cycle (principal); N83.202 Unspecified ovarian cyst, left side; N85.2 Hypertrophy of uterus; N94.6 Dysmenorrhea, unspecified; Z79.899 Other long term (current) drug therapy
CPT/HCPCS: 36415; 58550; 81025; 85025; 86850; 86900; 86901; 96374; 96375; A7015; G0378; G0379; J0780; J1100; J1885; J2250; J2405; J2704; J2710; J3010; J3490; J7030; J7120; J0696